=== PATIENT | male | born 1945 | race Caucasian/White ===

== ENCOUNTER 2016-11-23 13:06 | Inpatient (IN) ==
[2016-11-23] MEDS ORDERED: SALINE LOCK IV FLUID XX ONE (13:40)
[2016-11-23] MEDS ORDERED: ZOFRAN IV PRN (13:42)
[2016-11-23] MEDS ORDERED: TYLENOL PO PRN (13:42)
[2016-11-23] MEDS ORDERED: LASIX IV ONE (13:42)
[2016-11-23] MEDS ORDERED: DUONEB (A & A) INH PRN (13:42)
[2016-11-23] MEDS: PROTONIX IV SCH (14:20)
[2016-11-23] MEDS: SODIUM CHLORIDE 0.9% INJ SCH (14:20)
[2016-11-23] MEDS: NS 1,000 ML IV SCH (14:20)
[2016-11-23] MEDS: SOLU-MEDROL IV SCH ×2 (14:20→21:37)
[2016-11-23] MEDS: LEVAQUIN 750 MG/D5W 750 MG/150 ML IVPB IV SCH (14:21)
[2016-11-23 14:22] LABS: HEMATOCRIT 37.8 % (42.0-52.0); HEMOGLOBIN 12.9 g/dL (14.0-18.0); MCH 32.8 PG (27-31); MCHC 34.1 g/dL (33-37); MCV 96.2 FL (81-99); MPV 9.6 FL (7.4-10.4); RBC 3.93 XMIL (4.7-6.1)
[2016-11-23] MEDS: DUONEB (A & A) INH SCH ×2 (15:09→20:06)
[2016-11-23 16:08] LABS: BE 3.1 mmoll (-3.0-3.0); BLOOD TYPE ARTERIAL; DRAW SITE R RADIAL; METHB 1.7 % (0.0-1.5); O2(CT) 20.6 mL/dL (15.0-23.0); PCO2(98.6) 38 mmHg (35-45); PO2(98.6) 55 mmHg (60-100); SAMPLE BLOOD; SAO2 92.7 % (95.0-100.0); THB 16.6 g/dL (11.5-17.4); pH(98.6) 7.46 (7.35-7.45)
[2016-11-23 16:18] LABS: AGAP 15; ALBUMIN 3.9 g/dL (3.5-5.0); ALKALINE PHOSPHATASE 67 U/L (32-122); BUN 21 mg/dL (8-22); COSMO 278; GOT 15 U/L (10-34); GPT 9 U/L (10-44); MAGNESIUM 1.9 mg/dL (1.5-2.7); POTASSIUM 4.3 mmol/L (3.5-5.1); TOTAL PROTEIN 7.5 g/dL (6.3-8.3)
[2016-11-23 16:20] LABS: ALLEN TEST YES; MODALITY ROOM AIR
[2016-11-23 16:29] LABS: CHLORIDE 99 mmol/L (98-107); SODIUM 136 mmol/L (136-145); TCO2 22 mmol/L (25-35)
[2016-11-23] MEDS: WELLBUTRIN PO SCH (23:05)
[2016-11-24] MEDS: DUONEB (A & A) INH SCH ×7 (00:10→23:19)
[2016-11-24 05:49] LABS: HEMATOCRIT 34.9 % (42.0-52.0); HEMOGLOBIN 11.7 g/dL (14.0-18.0); MCH 32.4 PG (27-31); MCHC 33.5 g/dL (33-37); MCV 96.7 FL (81-99); MPV 9.9 FL (7.4-10.4); RBC 3.61 XMIL (4.7-6.1)
[2016-11-24] MEDS: SOLU-MEDROL IV SCH ×3 (05:49→21:21)
[2016-11-24 06:28] LABS: AGAP 14; ALBUMIN 3.6 g/dL (3.5-5.0); ALKALINE PHOSPHATASE 60 U/L (32-122); BUN 23 mg/dL (8-22); CALCIUM 8.6 mg/dL (8.8-10.2); CHLORIDE 103 mmol/L (98-107); COSMO 288; GOT 8 U/L (10-34); GPT 8 U/L (10-44); POTASSIUM 3.7 mmol/L (3.5-5.1); SODIUM 140 mmol/L (136-145); TCO2 23 mmol/L (25-35); TOTAL PROTEIN 6.3 g/dL (6.3-8.3)
--- NOTE | 2016-11-24 07:07 | Diag Imaging Result Document ---
PROCEDURE NAME: CHEST-2 VIEWS - 11/24/2016 FRONTAL AND LATERAL CHEST, TWO VIEWS: COMPARISON: Compared to 03/28/2013. FINDINGS: The lungs are hyperexpanded. The heart is mildly enlarged. There is mild central vascular prominence. No effusions. No pneumonia. IMPRESSION: 1. Mild cardiomegaly with central vascular distention. 2. I believe the patient has emphysema.
--- NOTE | 2016-11-24 08:06 | PROGRESS NOTE ---
DATE: 11/24/2016 SUBJECTIVE: The patient notes he feels a little bit better. He did have a bad night last night. Had lots cough, congestion, and shortness of breath, but otherwise states that he felt better last night than he did the night before. Denies any fevers, chills. Denies any production to his cough. States his wheezing is a little bit improved. Still gets tired when he is walking to the restroom. No chest pain or palpitations. OBJECTIVE: Vital Signs: Temperature 98, pulse 85, respiratory rate 16, blood pressure 142/78, sat 95% on room air. General: Patient is awake, alert, oriented. He is currently in no real respiratory distress. He is pleasant to talk with. Speech is regular. Memory is intact. Neck: Supple. Cardiovascular: Regular rate. Chest: Relatively clear. Much improved from yesterday's exam. Still mild wheezing. Good air movement bilaterally. Abdomen: Soft. Extremities: Moves all extremities. Neurologic: No focal neurological changes. Skin: Warm and dry. No rashes. LABORATORY DATA: Labs reviewed. Chest x-ray no real improvement. ASSESSMENT: 1. Chronic obstructive pulmonary disease with moderate exacerbation. 2. Pneumonia, improved. 3. Chronic tobacco abuse. 4. Hypertension. 5. Chronic situational depression. PLAN: We will continue patient on his current antibiotics. We will attempt to decrease his Solu- Medrol. Further orders as needed. Hopefully home in the next 1-2 days. cc: Wilder Miles MD
[2016-11-24] MEDS: NORVASC PO SCH (08:19)
[2016-11-24] MEDS: PLAVIX PO SCH (08:20)
[2016-11-24] MEDS: NS 1,000 ML IV SCH ×2 (08:20→21:21)
[2016-11-24] MEDS: TOPROL XL PO SCH (08:20)
[2016-11-24] MEDS: WELLBUTRIN PO SCH ×2 (08:37→21:20)
[2016-11-24 10:57] LABS: BILIRUBIN URINE NEGATIVE (NEGATIVE); BLOOD URINE NEGATIVE (NEGATIVE); CLARITY CLEAR (CLEAR); COLOR AMBER; LEUKOCYTES URINE TRACE (NEGATIVE); NITRITE URINE NEGATIVE (NEGATIVE); PROTEIN URINE 1+(30 mg/dL) mg/dL (NEGATIVE); UROBILINOGEN URINE 1+(1 mg/dL)
[2016-11-24 11:07] LABS: URINE CULTURE PL NEEDED? YES; URINE EPITHELIAL CELLS <10 /HPF (<10); URINE RBC <10 /HPF (<10); URINE SOURCE CLEAN CATCH; URINE WBC <10 /HPF (<10)
[2016-11-24] MEDS: SODIUM CHLORIDE 0.9% INJ SCH (13:32)
[2016-11-24] MEDS: LEVAQUIN 750 MG/D5W 750 MG/150 ML IVPB IV SCH (13:32)
[2016-11-24] MEDS: PROTONIX IV SCH (13:32)
[2016-11-24] MEDS ORDERED: LACTULOSE PO PRN (20:03)
[2016-11-25] MEDS: DUONEB (A & A) INH SCH ×6 (03:40→23:21)
[2016-11-25] MEDS: SOLU-MEDROL IV SCH ×2 (06:02→18:05)
[2016-11-25] MEDS: NORVASC PO SCH (08:13)
[2016-11-25] MEDS: TOPROL XL PO SCH (08:13)
[2016-11-25] MEDS: PLAVIX PO SCH (08:13)
[2016-11-25] MEDS: WELLBUTRIN PO SCH ×2 (08:13→21:37)
[2016-11-25] MEDS: LEVAQUIN PO SCH (09:37)
[2016-11-25] MEDS: COZAAR PO SCH (09:37)
[2016-11-25] MEDS: SODIUM CHLORIDE 0.9% INJ SCH (13:14)
[2016-11-25] MEDS: PROTONIX IV SCH (13:14)
[2016-11-25] MEDS ORDERED: VANCOMYCIN IV PER PHARMACY MISC SCH (18:45)
[2016-11-25] MEDS ORDERED: VANCOMYCIN 2,000 MG in NS 500 ML IV SCH (20:00)
[2016-11-26] MEDS: DUONEB (A & A) INH SCH ×4 (02:58→15:36)
[2016-11-26] MEDS: SOLU-MEDROL IV SCH (06:36)
[2016-11-26] MEDS: LEVAQUIN PO SCH (08:45)
[2016-11-26] MEDS: COZAAR PO SCH (08:45)
[2016-11-26] MEDS: TOPROL XL PO SCH (08:46)
[2016-11-26] MEDS: WELLBUTRIN PO SCH (08:46)
[2016-11-26] MEDS: NORVASC PO SCH (08:46)
[2016-11-26] MEDS: PLAVIX PO SCH (08:46)
--- NOTE | 2016-11-26 11:17 | PROGRESS NOTE ---
DATE: 11/25/2016 Progress note was not dictated yesterday secondary to waiting on the blood culture result. SUBJECTIVE: The patient was seen in the a.m. Noted that he was feeling a little bit better. Still evidence of cough. Did not sleep well. Had a headache and some nausea but denied any chest pain, denied any dysuria, no frequency. The patient was seen again in the afternoon and was informed that his blood culture was positive and that he would be staying the night. He notes that he was able to ambulate the jordan a little bit better in the afternoon. OBJECTIVE: Vital signs: Temp 98, pulse 62, respiratory 18, BP 138/73, sat 98% on room air. General: The patient is awake and alert. He is currently in mild respiratory distress. He has evidence of mild wheezing, positive cough, much so when he attempts to take a deep breath. HEENT: Normocephalic, atraumatic. Neck: Supple. CV: Regular rate. Chest: Decreased breath sounds but equal bilaterally. No wheezing. Positive rhonchi. No crackles. Abdomen: Soft. Extremities: Moves all extremities. ASSESSMENT: 1. Pneumonia. 2. Sepsis. 3. Chronic obstructive pulmonary disease with exacerbation. 4. Chronic hypoxic respiratory failure. 5. Chronic tobacco abuse. 6. Hypertension. 7. Depression. PLAN: Will continue the patient in the hospital overnight as his blood culture was positive. I have called the lab and they do not have an identification of his gram-positive cocci. Since it is only in one, it certainly may be coag-negative staph, but this is unprovable at this point. Will add vancomycin until that is resulted. Will continue to follow. Continue his other medications. cc: Wilder Miles MD
[2016-11-26 11:22] VITALS: BP 139/73
--- NOTE | 2016-11-26 12:57 | HISTORY AND PHYSICAL ---
CHIEF COMPLAINT: Cough. HISTORY OF PRESENT ILLNESS: The patient is a 71-year-old male who presented to the office today. Notes that he was having increased cough, congestion and shortness of breath. His oxygen was noted to be 88% on room air in the office. This is a patient who does not normally have oxygen at home. States he has been coughing for the past 2-3 weeks. It has continued to worsen. This has started to affect his daily activities. Noted he did not get out of bed yesterday secondary to the cough, except to go to the bathroom or to get something to drink. Otherwise, he was too short of breath. REVIEW OF SYSTEMS: The patient denies any production to his cough. Denies any fevers or chills currently. Denies any chest pain, palpitations. Denies any GI or issues. Denies any skin rashes. Notes that he has does cough so much that he does vomit, but he has not really been coughing anything up otherwise. PHYSICAL EXAMINATION: VITAL SIGNS: Temperature 98 degrees, pulse 78, respiratory rate 18, BP 138/69 and satting 91% on room air. GENERAL: Patient is a well developed, elderly male. He is currently in no respiratory distress. Appears stated age. He is pleasant to talk with. NECK: Supple. CV: Regular rate. CHEST: Decreased breath sounds. Positive rhonchi. Poor air movement, but equal bilaterally. No apparent crackles. Positive wheezing. ABDOMEN: Soft. EXTREMITIES: Moves all extremities. NEUROLOGIC: No focal changes. SKIN: Warm and dry. No rashes. DIAGNOSTIC DATA: WBC 12. The pH is 7.4, PO2 of 55, oxyhemoglobin 88.5, carboxyhemoglobin 2.8, methemoglobin 1.7. CMP essentially normal. ASSESSMENT: 1. Chronic obstructive pulmonary disease with moderate exacerbation. 2. Hypoxic respiratory failure. 3. Leukocytosis. 4. Pneumonia. 5. Depression. 6. Hypertension. 7. Chronic tobacco abuse. PLAN: We will admit patient to hospital. IV antibiotics, fluids. We will start him on Solu- Medrol. Again discussed with the patient the perils of smoking. We will begin breathing treatments and active pulmonary toilet. Will continue his home medications. Further orders as needed. We will check blood and sputum culture as well. cc: Wilder Miles MD
[2016-11-26] MEDS: PROTONIX IV SCH (13:09)
--- NOTE | 2016-11-26 23:30 | DISCHARGE SUMMARY ---
ADMISSION DATE: 11/23/2016 DISCHARGE DATE: 11/26/2016 DISCHARGE DIAGNOSES: 1. Chronic obstructive pulmonary disease with moderate exacerbation improved. 2. Hypoxemia stable. 3. Abnormal blood culture with coagulase-negative staphylococcus, contaminant. 4. Fever. 5. Hypoxemia improved. 6. Leukocytosis resolved. 7. Acute sepsis with fever in leukocytosis secondary to presumed pneumonia. CONSULTATIONS: None. PROCEDURES: None. BRIEF HOSPITAL COURSE: Patient is 71-year-old male was admitted as noted on the HPI. Treated in usual fashion. Placed on breathing treatments, antibiotics, oxygen, Solu-Medrol, was continued on his home medication. Thankfully on discharge he was alert and oriented. He was in no distress. He was still having a cough but significantly improved. His discharge was delayed by 1 day secondary to a blood culture that was positive gram-positive cocci however this ended up being coagulase-negative staph. On discharge patient will be discharged home. He will follow up in the office 1-2 weeks. DISPOSITION: The patient will be discharged home. He will follow up in the office in 1-2 weeks. Will continue Levaquin, doxycycline, Medrol Dosepak as well as his other home medications. TIME SPENT: 45 minutes was spent in discharge planning and instructions. cc: Wilder Miles MD
[2016-11-27] MEDS ORDERED: PROTONIX PO SCH (07:00)
== END 2016-11-26 16:50 | disposition home or self-care (01) ==
LOC: P.DIRADM 13:06 → P.MEDSURG 13:10
PROVIDERS: ADMIT Family Medicine; ATTEND Family Medicine